=== PATIENT | female | born 1980 | race Caucasian/White ===

== ENCOUNTER 2023-07-18 12:57 | Outpatient (RCR) | payer BC, SELFPAY | END 2023-07-18 23:59 | disposition home or self-care (01) | LOC: RPT 12:57 | PROVIDERS: ATTENDING PHYSICIAN Internal Medicine | DX: M62.89 Other specified disorders of muscle (principal); N39.3 Stress incontinence (female) (male); R39.14 Feeling of incomplete bladder emptying; Z73.6 Limitation of activities due to disability | CPT/HCPCS: 97110; 97140; 97162; 97530 ==

== ENCOUNTER 2023-08-29 11:06 | Outpatient (RCR) | payer BC, SELFPAY | END 2023-09-01 07:29 | disposition home or self-care (01) | LOC: RPT 11:06 | PROVIDERS: ATTENDING PHYSICIAN Internal Medicine | DX: M62.89 Other specified disorders of muscle (principal); N39.3 Stress incontinence (female) (male); R39.14 Feeling of incomplete bladder emptying; Z73.6 Limitation of activities due to disability | CPT/HCPCS: 97110; 97112; 97140; 97530 ==

== ENCOUNTER → 2023-11-05 11:50 | Outpatient (REF) | payer BC, SELFPAY | LOC: WDC 11:50 | PROVIDERS: ATTENDING PHYSICIAN Obstetrics & Gynecology Gynecology; FAMILY PHYSICIAN Family Medicine | DX: Z12.31 Encounter for screening mammogram for malignant neoplasm of breast (principal) | CPT/HCPCS: 77063; 77067 ==

== ENCOUNTER → 2023-11-10 06:41 | Day surgery (SDC) | payer BC, SELFPAY | LOC: GI 06:41 | PROVIDERS: ATTENDING PHYSICIAN Internal Medicine Gastroenterology; FAMILY PHYSICIAN Family Medicine | DX: K31.89 Other diseases of stomach and duodenum (principal); R12 Heartburn | CPT/HCPCS: 43249; 43239; 88305 ==

== ENCOUNTER → 2024-08-25 09:47 | Outpatient (REF) | payer BC, SELFPAY | LOC: HWRAD 09:47 | PROVIDERS: ATTENDING PHYSICIAN Physician Assistant; FAMILY PHYSICIAN Family Medicine | DX: M25.561 Pain in right knee (principal) | CPT/HCPCS: 73700 ==

== ENCOUNTER 2024-11-02 06:21 | Outpatient (RCR) | payer BC, SELFPAY | END 2024-11-02 23:59 | disposition home or self-care (01) | LOC: RPT 06:21 | PROVIDERS: ATTENDING PHYSICIAN Orthopaedic Surgery Orthopaedic Trauma; FAMILY PHYSICIAN Family Medicine | DX: Z47.89 Encounter for other orthopedic aftercare (principal); M25.561 Pain in right knee; Z73.6 Limitation of activities due to disability; R26.2 Difficulty in walking, not elsewhere classified; M62.81 Muscle weakness (generalized); S82.144D Nondisplaced bicondylar fracture of right tibia, subsequent encounter for closed fracture with routine healing; V00.321D Fall from snow-skis, subsequent encounter | CPT/HCPCS: 97110; 97162 ==

== ENCOUNTER → 2024-11-05 12:29 | Outpatient (REF) | payer BC, SELFPAY | LOC: WDC 12:29 | PROVIDERS: ATTENDING PHYSICIAN Obstetrics & Gynecology Gynecology; FAMILY PHYSICIAN Family Medicine | DX: Z12.31 Encounter for screening mammogram for malignant neoplasm of breast (principal) | CPT/HCPCS: 77063; 77067 ==

== ENCOUNTER 2024-12-02 10:04 | Outpatient (RCR) | payer BC, SELFPAY | END 2024-12-02 23:59 | disposition home or self-care (01) | LOC: RPT 10:04 | PROVIDERS: ATTENDING PHYSICIAN Orthopaedic Surgery Orthopaedic Trauma; FAMILY PHYSICIAN Family Medicine | DX: Z47.89 Encounter for other orthopedic aftercare (principal); M25.561 Pain in right knee; Z73.6 Limitation of activities due to disability; M62.81 Muscle weakness (generalized); S82.144D Nondisplaced bicondylar fracture of right tibia, subsequent encounter for closed fracture with routine healing; R26.2 Difficulty in walking, not elsewhere classified; V00.321D Fall from snow-skis, subsequent encounter | CPT/HCPCS: 97110; 97112; 97116; 97530 ==

== ENCOUNTER 2024-12-22 10:14 | Outpatient (RCR) | payer BC, SELFPAY | END 2024-12-22 23:59 | disposition home or self-care (01) | LOC: RPT 10:14 | PROVIDERS: ATTENDING PHYSICIAN Orthopaedic Surgery Orthopaedic Trauma; FAMILY PHYSICIAN Family Medicine | DX: Z47.89 Encounter for other orthopedic aftercare (principal); M25.561 Pain in right knee; Z73.6 Limitation of activities due to disability; M62.81 Muscle weakness (generalized); S82.144D Nondisplaced bicondylar fracture of right tibia, subsequent encounter for closed fracture with routine healing; R26.2 Difficulty in walking, not elsewhere classified; V00.321D Fall from snow-skis, subsequent encounter | CPT/HCPCS: 97110; 97112; 97530 ==

== ENCOUNTER 2025-01-19 16:52 | Outpatient (RCR) | payer BC, SELFPAY | END 2025-02-03 13:28 | disposition home or self-care (01) | LOC: RPT 16:52 | PROVIDERS: ATTENDING PHYSICIAN Orthopaedic Surgery Orthopaedic Trauma; FAMILY PHYSICIAN Family Medicine | DX: Z47.89 Encounter for other orthopedic aftercare (principal); M25.561 Pain in right knee; Z73.6 Limitation of activities due to disability; M62.81 Muscle weakness (generalized); S82.144D Nondisplaced bicondylar fracture of right tibia, subsequent encounter for closed fracture with routine healing; R26.2 Difficulty in walking, not elsewhere classified; V00.321D Fall from snow-skis, subsequent encounter | CPT/HCPCS: 97110 ==

== ENCOUNTER 2025-01-27 06:17 | Day surgery (SDC) | payer BC, SELFPAY | END 2025-01-27 10:35 | disposition home or self-care (01) | LOC: GI 06:17 | PROVIDERS: ATTENDING PHYSICIAN Internal Medicine Gastroenterology | DX: K57.30 Diverticulosis of large intestine without perforation or abscess without bleeding (principal); K64.8 Other hemorrhoids; K92.1 Melena; D12.2 Benign neoplasm of ascending colon | CPT/HCPCS: 45380; 88305 ==

== ENCOUNTER 2025-02-23 06:10 | Day surgery (SDC) | payer BC, SELFPAY ==
[2025-02-23] VITALS (10 sets, daily range): BP systolic 92–138; BP diastolic 57–85; BMI 31.2
[2025-02-23] MEDS: LYRICA 150 MG PO (09:26)
[2025-02-23] MEDS: TYLENOL 1000 MG PO (09:26)
[2025-02-23] MEDS: NORMOSOL-R/PLASMALYTE-A 1000 IV (09:27)
--- NOTE | 2025-02-23 11:38 | W.IMMPOSTOP ---
Addendum entered and electronically signed by Alber Yung MD 02/23/25 13:47:
updated spouse over the phone
Addendum entered and electronically signed by Alber Yung MD 02/23/25 13:47:
error: moderate-sized hemorrhoids located in the right anterior (not posterior)
Original Note:
Surgical Immed Post Op Note
-
Primary Surgeon: Alber Yung MD
Assisting Surgeon: Shlomo Pretty MD
Pre-op Diagnosis: Internal hemorrhoids
Post-op Diagnosis: Internal hemorrhoids
Procedure Performed: Suture ligation and hemorrhoidopexy of internal hemorrhoids x 3, suture ligation of internal hemorrhoids x 2, bilateral pudendal nerve block
Anesthesia Type: General
Specimen / Cultures: None
Estimated Blood Loss: 5 mL
Complications: None
Operative Findings: Moderate internal hemorrhoid in the right posterior, small to moderate internal hemorrhoid in the right anterior, small to moderate in the left lateral, performed suture ligation with hemorrhoidopexy; small internal hemorrhoid in
the left posterior and small internal hemorrhoid in the right lateral, performed suture ligation; performed pudendal nerve block and left Surgicel within the anal canal
--- NOTE | 2025-02-23 11:40 | OR.RPT ---
Operative Report
Operative Report
DATE OF OPERATION: 02/23/2025
SURGEON: Alber Yung MD
PREOPERATIVE DIAGNOSIS: Symptomatic internal hemorrhoids
POSTOPERATIVE DIAGNOSIS: Symptomatic internal hemorrhoids
OPERATION: Exam under anesthesia, suture ligation with hemorrhoidopexy x 3, suture ligation x 2, bilateral pudendal nerve block
ASSISTANTS:
1. Shlomo Pertty MD
ANESTHESIA: General With local
ESTIMATED BLOOD LOSS: 5 mL
FINDINGS:
1. Moderate-sized internal hemorrhoid in the right anterior quadrant; small to moderate-sized internal hemorrhoids in the right anterior and left lateral quadrants; performed suture ligation with hemorrhoidopexy
2. Small internal hemorrhoids in the left posterior and right lateral position, performed suture ligation
SPECIMENS:
1. None
DRAINS: None
COMPLICATIONS: None
INDICATIONS: The patient is a 44-year-old female who presented with rectal bleeding and discomfort with BMs and was diagnosed with symptomatic internal hemorrhoids. Despite a course of nonoperative measures, the symptoms persisted. Therefore, the
patient was recommended to have surgery. I explained that a suture hemorrhoidopexy would be the plan for any concerning internal hemorrhoids. However, if a hemorrhoid identified on exam under anesthesia is too large for a suture hemorrhoidopexy, I
would perform an excisional hemorrhoidectomy. The operation was discussed with the patient in detail, including the risks, benefits and alternatives. Risks described included, but not limited to, bleeding, infection, urinary retention, damage to
nearby structures such as the anal sphincter, fecal incontinence, anal stenosis, recurrence, and anesthetic risks. The patient understood and agreed to proceed. The consent was signed and placed in the chart.
PROCEDURE IN DETAIL: The patient was taken to the operating room. Sequential compression devices were placed bilaterally. Per anesthesia, the decision was made to intubate the patient for this surgery. On the stretcher, general anesthesia was
induced and the patient was intubated without complication. The patient was placed on the operating table in prone position. Two seat belts were secured around the legs and upper back. The buttocks were taped apart. The perineum was prepped and
draped in the usual fashion. A time-out was performed verifying the correct patient, procedure, operative site, positioning, and special equipment.
Local anesthesia used was a mixture of 30 mL of 0.25% Marcaine with epinephrine, 30mL of 1% lidocaine plain and 0.6 mg of dexamethasone. 40 mL was injected perianally at the beginning of the case. The anorectal exam was performed assessing all four
quadrants of the anal canal using Hill-Ervin retractors in progressively increasing size. There were 2 areas of elevated anoderm consistent with anal skin tags. There was a moderately-sized internal hemorrhoid in the right anterior quadrant
that was irritated, but not bleeding. There were small to moderate internal hemorrhoids in the right posterior and left lateral quadrants that were mildly irritated, but not bleeding.
I elected to proceed with suture ligation and hemorrhoidopexy of these hemorrhoids. Using a Hill-Ervin retractor, the hemorrhoid was exposed. I ligated the pedicle of the hemorrhoid with a 2-0 Vicryl in a figure-of-8 fashion, leaving the tail
long. I took running mucosal bites of the hemorrhoid distally toward the dentate line, stopping 1 cm above the dentate line. I tied this down to the long tail in order to pexy the hemorrhoid. Hemostasis was confirmed. The remaining internal
hemorrhoids were ligated and pexied in a similar fashion.
I examined the anal canal once again and there appeared to be a small amount of residual hemorrhoid tissue in the left posterior and right lateral positions. I performed suture ligation of these areas using 2-0 Vicryl in a [id number] fashion,
taking care to avoid ligating distal to the dentate line. Hemostasis was assured.
The anal canal was irrigated copiously with saline, checking for hemostasis, which was ensured. The remaining 20 mL of local were injected. 5 mL was injected bilaterally for a pudendal nerve block. 10 mL was injected around the surgical site and
perianally. The smallest Hill-Ervin was used to check hemostasis once more, which was confirmed. Surgicel was placed in the anal canal prophylactically.
At this point, the procedure was complete. All needle, sponge and instrument counts were correct. The patient tolerated the procedure well and was transferred to the recovery room in stable condition with gauze dressing in place secured with silk
tape.
Of note, Shlomo Pretty MD, executive staff assistant, was necessary during this procedure for traction, countertraction, and exploratory purposes. I was present for the entire duration of the case.
DICTATED BY: Alber Yung MD
[2025-02-23] MEDS: DILAUDID 0.25 MG IV (12:32)
== END 2025-02-23 14:04 | disposition home or self-care (01) ==
LOC: SDS 06:10
PROVIDERS: ATTENDING PHYSICIAN Surgery
DX: K64.8 Other hemorrhoids (principal); K62.5 Hemorrhage of anus and rectum
CPT/HCPCS: 46946

== ENCOUNTER → 2025-05-31 13:01 | Outpatient (REF) | payer BC, SELFPAY | LOC: WDC 13:01 | PROVIDERS: ATTENDING PHYSICIAN Obstetrics & Gynecology Gynecology; FAMILY PHYSICIAN Family Medicine | DX: R92.2 Inconclusive mammogram (principal) | CPT/HCPCS: 76641 ==

== ENCOUNTER → 2025-06-07 09:35 | Outpatient (REF) | payer BC, SELFPAY ==
--- NOTE | 2025-06-07 14:30 | OID.BR.INTR ---
[facility] - Initial
- -
Date of Contact: 06/07/25
Met with patient. Patient given written information on navigator service available at [facility]. Will follow up as needed per protocol.
== END ==
LOC: WDC 09:35
PROVIDERS: ATTENDING PHYSICIAN Obstetrics & Gynecology Gynecology; FAMILY PHYSICIAN Family Medicine
DX: R92.8 Other abnormal and inconclusive findings on diagnostic imaging of breast (principal); N63.21 Unspecified lump in the left breast, upper outer quadrant
CPT/HCPCS: 19083; 88305; 88341; 88342; A4648